=== PATIENT | male | born 1995 | race African-American/Black ===

== ENCOUNTER 2019-02-03 14:34 | Emergency (ER) | payer MEDICAID ==
[~2019-02-03] VITALS: Ht 182.9 cm; Wt 78.0 kg
[2019-02-03 14:50] VITALS: BP 138/80
--- NOTE | 2019-02-03 15:10 | PHYS DOC ---
Past History Past Medical History: No Pertinent History Past Surgical History: No Surgical History Smoking: Non-smoker Alcohol Use: None Drug Use: Marijuana Adult General Chief Complaint Chief Complaint: DEPRESSION HPI HPI Patient is a 23-year-old male presents with suicidal thoughts. He sent a text message out to multiple people this morning indicating this. He relates this to being the time of year when he found out that his grandmother when he was a sophomore in high school. He has had long standing depressive thoughts but is not currently on any medication nor receiving any counseling. He is from [facility], and attending college at [employer]. He denies having a plan as to how he would hurt himself. Denies any homicidal ideation. He reports he has completed his final exams for the term and is supposed to go home to [place] tomorrow.[] Review of Systems Review of Systems Constitutional: Denies fever or chills [] Eyes: Denies change in visual acuity, redness, or eye pain [] HENT: Denies nasal congestion or sore throat [] Respiratory: Denies cough or shortness of breath [] Cardiovascular: No chest pain or palpitations[] GI: Denies abdominal pain, nausea, vomiting, bloody stools or diarrhea [] : Denies dysuria or hematuria [] Musculoskeletal: Denies back pain or joint pain [] Integument: Denies rash or skin lesions [] Neurologic: Denies headache, focal weakness or sensory changes [] Endocrine: Denies polyuria or polydipsia [] All other systems were reviewed and found to be within normal limits, except as documented in this note. Allergies Allergies Allergies Coded Allergies Type Severity Reaction Last Updated Verified No Known Drug Allergies 02/03/19 No Physical Exam Physical Exam Constitutional: Well developed, well nourished, no acute distress, non-toxic appearance. [] HENT: Normocephalic, atraumatic, bilateral external ears normal, oropharynx moist, no oral exudates, nose normal. [] Eyes: PERRLA, EOMI, conjunctiva normal, no discharge. [] Neck: Normal range of motion, no tenderness, supple, no stridor. [] Cardiovascular:Heart rate regular rhythm, no murmur [] Lungs & Thorax: Bilateral breath sounds clear to auscultation [] Abdomen: Bowel sounds normal, soft, no tenderness, no masses, no pulsatile masses. [] Skin: Warm, dry, no erythema, no rash. [] Back: No tenderness, no CVA tenderness. [] Extremities: No tenderness, no cyanosis, no clubbing, ROM intact, no edema. [] Neurologic: Alert and oriented X 3, normal motor function, normal sensory function, no focal deficits noted. [] Psychologic: Affect flat, suicidal ideation is present without a plan, denies homicidal ideation, denies hallucinations, mood depressed. [] Current Patient Data Vital Signs Vital Signs Date Time Temp Pulse Resp B/P (MAP) Pulse Ox O2 Delivery O2 Flow Rate FiO2 02/03/19 14:50 98.5 85 18 98 Room Air EKG EKG [] Radiology/Procedures Radiology/Procedures [] Course & Med Decision Making Course & Med Decision Making Pertinent Labs and Imaging studies reviewed. (See chart for details) ED course: Patient arrived, was placed in bed, and tolerated exam well. Once he was deemed to be medically clear for evaluation either mental health services, Chauncey from the [facility] evaluated him and determined that he was safe to return home. Patient was discharged in improved condition. Medical decision making: Patient with long-standing history of depression issues with what appears to be an exacerbation of this due to the time of year. No evidence of current suicidality or homicidality. Family in [place] where he is returning to tomorrow was contacted and will work with him to ensure his safety as well.[] Dragon Disclaimer Dragon Disclaimer This electronic medical record was generated, in whole or in part, using a voice recognition dictation system. Departure Departure: Impression: Primary Impression: Depression Disposition: HOME, SELF-CARE Condition: IMPROVED Patient Instructions: Depression, Adult, Suicidal Feelings, How to Help Yourself, Suicide, Helping Someone Who is Suicidal Additional Instructions: Follow-up with your regular doctor in 2 days. When you return back from Winter break, follow-up with the [facility]. Address: [address] [place] [id number] Return to the emergency department if you have continued thoughts of hurting yourself or anyone else. Problem Qualifiers Primary Impression: Depression Depression Type: unspecified Qualified Codes: F32.9 - Major depressive disorder, single episode, unspecified CHRISTOPHER LYON DO Feb 03, 2019 15:10
[2019-02-03 15:17] LABS: BARBITURATES NEG (NEG); BENZODIAZEPINES NEG (NEG); CANNABINOIDS POS (NEG); COCAINE NEG (NEG); METHADONE NEG (NEG); OPIATES NEG (NEG); PHENCYCLIDINE NEG (NEG)
[2019-02-03 15:18] LABS: AMPHETAMINE/METHAMPHETAMINE NEG (NEG)
[2019-02-03 15:25] LABS: BACTERIA,URINE 0 /HPF (0-FEW); BILIRUBIN,URINE NEG (NEG); CLARITY,URINE CLEAR; COLOR,URINE STRAW; GLUCOSE,URINE NEG (NEG); NITRITE,URINE NEG (NEG); RBC,URINE 0 /HPF (0-2); UROBILINOGEN,URINE 0.2 mg/dL (0.2 mg/dL); WBC,URINE 0 /HPF (0-4)
[2019-02-03 15:39] LABS: BASO % 0 % (0-3); EOS % 0 % (0-3); HEMATOCRIT 45.7 % (39.0-53.0); HEMOGLOBIN 15.4 g/dL (13.0-17.5); LYMPH # 0.7 x10^3/uL (1.0-4.8); LYMPH % 13 % (24-48); MEAN CORPUSCULAR HEMOGLOBIN 31 pg (25-35); MEAN CORPUSCULAR HGB CONC 34 g/dL (31-37); MEAN CORPUSCULAR VOLUME 91 fL (79-100); MONO # 0.4 x10^3/uL (0.0-1.1); MONO % 7 % (0-9); NEUT # 4.6 x10^3uL (1.8-7.7); NEUT % 80 % (31-73); PLATELET COUNT 229 x10^3/uL (140-400); RED BLOOD COUNT 5.02 x10^6/uL (4.30-5.70); RED CELL DISTRIBUTION WIDTH 12.3 % (11.5-14.5); WHITE BLOOD COUNT 5.8 x10^3/uL (4.0-11.0)
[2019-02-03 15:55] LABS: ALBUMIN 4.4 g/dL (3.4-5.0); ALBUMIN/GLOBULIN RATIO 1.2 (1.0-1.7); CALCIUM 9.4 mg/dL (8.5-10.1); CREATININE 1.1 mg/dL (0.7-1.3); GFR 101.3; MAGNESIUM 1.9 mg/dL (1.8-2.4); POTASSIUM 4.2 mmol/L (3.5-5.1); TOTAL BILIRUBIN 0.7 mg/dL (0.2-1.0)
[2019-02-03 15:56] LABS: ACETAMIN < 2.0 mcg/mL (10-30); ETHANOL < 10 mg/dL (0-10); SALIC 2.5 mg/dL (2.8-20.0)
--- NOTE | 2019-02-03 16:36 | NUR ---
@ 5330 : [facility]unce[facility] is in the rm w/ pt. doing a screen.
== END 2019-02-03 18:12 | disposition home or self-care (01) ==
LOC: EDBD 14:34 → ER 14:34
DX: F32.9 Major depressive disorder, single episode, unspecified (principal)
CPT/HCPCS: 36415; 80053; 80307; 80329; 81001; 83735; 85025; 99284; G0480; 82003